=== PATIENT | male | born 1960 | race Caucasian/White ===

== ENCOUNTER 2024-02-11 17:41 | Emergency (ER) | payer MEDICAID ==
[~2024-02-11] VITALS: Ht 157.5 cm; Wt 75.0 kg
[2024-02-11 17:43] VITALS: O2SAT 100
[2024-02-11 18:20] VITALS: TEMP 98.2
[2024-02-11] MEDS: SODIUM CHLORIDE 0.9% 1,000 ML IV ONE (19:08)
[2024-02-11 19:22] LABS: BASOPHILS % 0.9 % (0.0-2.0); EOSINOPHILS % 2.5 % (0.0-5.0); HEMATOCRIT. 40.5 % (42.0-52.0); HEMOGLOBIN. 13.9 g/dL (14.0-18.0); LYMPHOCYTES % 36.2 % (20.0-50.0); MEAN CORPUSCULAR HEMOGLOBIN 31.1 pg (28.0-32.0); MEAN CORPUSCULAR HGB CONC 34.4 g/dL (31.0-37.0); MEAN CORPUSCULAR VOLUME 90.3 fL (80.0-94.0); MEAN PLATELET VOLUME 7.9 fl (7.4-10.4); MONOCYTES % 6.1 % (2.0-8.0); NEUTROPHILS % 54.3 % (40.0-76.0); PLATELET 114 x1000/uL (130-400); RED BLOOD CELL COUNT 4.48 mill/uL (4.7-6.1); RED CELL DISTRIBUTION WIDTH 14.3 % (11.6-14.6); WHITE BLOOD COUNT 3.6 x1000/uL (4.5-11.0)
[2024-02-11 19:28] LABS: CLARITY URINE CLEAR (CLEAR); COLOR URINE YELLOW (YELLOW); GLUCOSE URINE 3+ (NEGATIVE); KETONES URINE NEGATIVE (NEGATIVE); LEUKOCYTE ESTERASE URINE TRACE (NEGATIVE); NITRITE URINE NEGATIVE (NEGATIVE); OCCULT BLOOD URINE NEGATIVE (NEGATIVE); PROTEIN URINE NEGATIVE (NEGATIVE); SPECIFIC GRAVITY URINE 1.013 (1.005-1.030); UROBILINOGEN URINE 0.2 E.U./dL (0.2-1.0)
[2024-02-11 20:05] LABS: BACTERIA URINE 1+; RBC URINE NONE SEEN /hpf (0-2); SQUAMOUS EPITHELIAL CELL URINE FEW /lpf (RARE/1+); WBC URINE 0-2 /hpf (0-2)
[2024-02-11 20:06] LABS: CHLORIDE 102 mEq/L (98-107); SODIUM 136 mEq/L (136-145)
[2024-02-11 20:07] LABS: CARBON DIOXIDE 24 mEq/L (21-32)
[2024-02-11 20:08] LABS: CALCIUM 8.5 mg/dL (8.7-10.4)
[2024-02-11 20:12] LABS: CREATININE 0.8 mg/dL (0.6-1.3); GLUCOSE 333 mg/dL (70-105); UREA NITROGEN BLOOD 7 mg/dL (9-23)
[2024-02-11 20:15] LABS: BETA HYDROXYBUTYRATE 0.2 mMol/L (0.0-0.3)
[2024-02-11 20:47] VITALS: BP 132/76; PULSE 87; RESP 17
[2024-02-11] MEDS ORDERED: INSULIN REGULAR (HUMULIN R) 1000UNITS/10ML VIAL SUBCUT ONE (21:00)
[2024-02-11 21:31] LABS: ETHANOL BLOOD 295 mg/dL (<10)
== END 2024-02-11 20:55 | disposition left against medical advice (07) ==
LOC: ER 17:41
DX: E11.65 Type 2 diabetes mellitus with hyperglycemia (principal); F10.129 Alcohol abuse with intoxication, unspecified; Y90.8 Blood alcohol level of 240 mg/100 ml or more
CPT/HCPCS: 80048; 81003; 82010; 80320; 85025; 36415; 96360; 99283; J7030; Z7610; G0480